=== PATIENT | male | born 1950 | race Caucasian/White ===

== ENCOUNTER 2017-06-08 14:35 | Emergency (ER) ==
[~2017-06-08] VITALS: Ht 180.3 cm; Wt 81.6 kg
== END 2017-06-08 18:14 | disposition left against medical advice (07) ==
LOC: CED 14:35
DX: Z53.21 Procedure and treatment not carried out due to patient leaving prior to being seen by health care provider (principal)

== ENCOUNTER → 2017-06-14 | Outpatient (CLI) | payer OTHER ==
--- NOTE | ~2017-06-14 | CR184 ---
[facility] A Service of [facility] & [facility] RADIOLOGY TEXT RESULTS PATIENT: BOLIVAR COLE LOCATION: [facility] : 54 UNIT #: [id number] AGE: [address]: GUILLERMO POWERS MD SEX: M ORDER DR: [id number] [facility] [address] [place], [place] [address] [id number] O MR#: [id number] Acc #: [id number] NAME: BOLIVAR COLE : 1950 SEX: M STUDY DATE/TIME: 06/14/2017 13:28 UNIT: [facility] ROOM: STUDY DESCRIPTION: CR Lumbar Spine Min 4 Views Attending Physician: Guillermo Powers M.D. Referring Physician: Guillermo Powers M.D. Ordering Physician: Guillermo Powers M.D. Primary Care Physician: Guillermo Powers M.D. MEDICAL IMAGING REPORT This report is preliminary unless electronic signature is present EXAM Lumbar spine 5 views 06/14/2017. HISTORY Low back pain, lumbago for 2 years. No known injury. FINDINGS 5 views of the lumbar spine demonstrate no fracture. The posterior vertebral body line is intact and there is no anterolisthesis or retrolisthesis. There is degenerative change with mild disc space narrowing at L4-5 and L5-S1. Small anterior osteophytes are seen throughout the lumbar spine and there is degenerative change involving the articular facets. IMPRESSION Minimal degenerative change in the lumbar spine. No acute abnormality. Dictated by... Chris Snow M.D. THIS IS AN ELECTRONICALLY VERIFIED REPORT Chris Snow M.D. at 06/15/2017 2:22 PM KRT/gz TD: 06/15/2017 09:15 JOB #: [id number] MEDICAL IMAGING REPORT Page 1 of 1 COPY
== END | disposition home or self-care (01) ==
LOC: CRAD 13:19
DX: M54.5 Low back pain (principal)
CPT/HCPCS: 72110